=== PATIENT | male | born 1975 | race Caucasian/White ===

== ENCOUNTER 2016-07-21 09:59 | Emergency (ER) | payer SELFPAY ==
[2016-07-21] MEDS ORDERED: NO HOME MEDICATION XX (10:10)
[2016-07-21] MEDS ORDERED: KEFLEX500 M4 PO (11:42)
[2016-07-21] MEDS ORDERED: INDOMETHACIN25 M1 PO (11:42)
== END 2016-07-21 11:52 ==
LOC: EDMED 09:59
DX: M79.674 Pain in right toe(s) (principal); F17.210 Nicotine dependence, cigarettes, uncomplicated